=== PATIENT | male | born 1960 | race African-American/Black ===

== ENCOUNTER 2019-09-25 01:03 | Emergency (ER) | payer OTHER ==
[~2019-09-25] VITALS: Ht 175.3 cm; Wt 72.6 kg
[~2019-09-25 01:03] MED LIST: ACETAMINOPHEN500 M5 ORAL; ASPIR-LOW81 MG ORAL; BUPROPION HCL100 MG ORAL; DOXYCYCLINE HY100 M2 PO; LEVOFLOXACIN500 MG ORAL; LITHIUM CARBON300 M1 PO; MONTELUKAST SOD10 MG ORAL; SEROQUEL XR200 MG ORAL; SEROQUEL50 MG ORAL
--- NOTE | 2019-09-25 01:07 | NUR ---
ED Nurse Note: pt presents to ED via EMS arrival RA 60 from [facility] with a behavioral complaint. per EMS, pt states he hasn't taken any of his psych meds today and for the past hour he has been yelling and reporting visual and auditory hallucinations. pt denies SI/ HI, pt is able to answer questions and follow commands but repeatedly has outbursts and yells nonsensically. pt also has a cough x 1 month and admits to marijuana use today
[2019-09-25] MEDS ORDERED: Albuterol ud Inhalation HHN ONE (01:15)
[2019-09-25] MEDS ORDERED: Solu-MEDROL 125mg Inj IVP ONE (01:15)
[2019-09-25] MEDS ORDERED: Haloperidol 5mg/ml Inj IM ONE (01:15)
[2019-09-25] MEDS ORDERED: LORazepam Inj 2mg/ml 1ml IV ONE (01:15)
--- NOTE | 2019-09-25 01:15 | Emergency Room Report ---
History of Present Illness General Chief Complaint: Behavioral Complaint Source: Patient, Medical Record, EMS Present Illness HPI This is a 59-year-old male with a psychiatric history and also history of COPD. He continues to smoke. His main complaint here is agitation. He did not take his psychiatric medications today in the psychiatric facility sent him here because he is agitated. He is been agitated and screaming. No nausea no vomiting. Patient denies any suicidal thoughts homicidal thought. Said he did not take his lithium and Seroquel today. Allergies: Coded Allergies: No Known Allergies (Unverified , 08/16/19) Patient History Past Medical History: see triage record, old chart reviewed, COPD, psych hx Past Surgical History: other Pertinent Family History: none Social History: Reports: smoking Immunizations: other Reviewed Nursing Documentation: PMH: Agreed; PSxH: Agreed Nursing Documentation-PMH Hx Cardiac Problems: No Hx Asthma: Yes Hx COPD: Yes Hx Cancer: No Hx Gastrointestinal Problems: No Review of Systems Eye: Denies: eye pain, blurred vision ENT: Denies: ear pain, nose congestion, throat swelling Respiratory: Denies: cough, shortness of breath Cardiovascular: Denies: chest pain, palpitations Gastrointestinal: Denies: abdominal pain, diarrhea, nausea, vomiting Musculoskeletal: Denies: back pain, joint pain Skin: Denies: rash Neurological: Denies: headache, numbness Endocrine: Denies: increased thirst, increased urine Hematologic/Lymphatic: Denies: easy bruising All Other Systems: negative except mentioned in HPI Physical Exam Vital Signs Date Time Temp Pulse Resp B/P (MAP) Pulse Ox O2 Delivery O2 Flow Rate FiO2 09/25/19 00:58 99.9 84 20 114/70 (85) 97 Room Air Vitals normal Sp02 EP Interpretation: reviewed, normal General Appearance: well appearing, no apparent distress, alert, other - Patient with outbursts of yelling intermittently. Head: normocephalic, atraumatic Eyes: bilateral eye PERRL, bilateral eye EOMI ENT: hearing grossly normal, normal pharynx Neck: full range of motion, supple, no meningismus Respiratory: chest non-tender, wheezing Cardiovascular #1: regular rate, rhythm, no murmur Gastrointestinal: normal bowel sounds, non tender, no mass, no organomegaly, no bruit, non-distended Musculoskeletal: back normal, normal range of motion, gait/station normal Psychiatric: mood/affect normal Medical Decision Making Diagnostic Impression: Primary Impression: COPD with exacerbation Additional Impressions: Psychosis Qualified Codes: F23 - Brief psychotic disorder Methamphetamine abuse ER Course Patient presents with acute psychosis probably secondary to methamphetamine use. He is calm after getting Haldol and Ativan. I gave him breathing treatment here also. Wheezing resolved. Will discharge back to psychiatric boarding care in the morning. No evidence of ACS, PE, dissection to name a few. No criteria for 5150. This patient is a chronic risk of self injury due to poor impulse control, limited coping skills, and judgment intermittently impaired by intoxication. I believe that the available clinical evidence to suggest that these characteristics derived primarily from personality disorder and are likely very stable over time. Hospitalization would likely attenuate risk of self-harm only during correction period, without lasting risk reduction. Serious self-harm , while possible, would likely be inadvertent, and because of impulsivity, and foreseeable. For these reasons, I do not believe hospitalization would provide meaningful reduction in risk of self-harm. Chest X-Ray Diagnostic Results Chest X-Ray Diagnostic Results : Chest X-Ray Ordered: Yes # of Views/Limited/Complete: 1 View Indication: Shortness of Breath EP Interpretation: Yes Interpretation: no consolidation, no effusion, no pneumothorax, no acute cardiopulmonary disease Impression: No acute disease Electronically Signed by: Anjel Mobley MD Last Vital Signs Date Time Temp Pulse Resp B/P (MAP) Pulse Ox O2 Delivery O2 Flow Rate FiO2 09/25/19 00:58 99.9 84 20 114/70 (85) 97 Room Air Status: improved Disposition: HOME, SELF-CARE Condition: Stable Scripts Prednisone* (PREDNISONE*) 20 Mg Tablet 40 MG ORAL DAILY, #10 TAB Prov: Anjel Mobley MD 09/25/19 Albuterol Sulfate* (ALBUTEROL SULFATE MDI*) 8.5 Gm Hfa.aer.ad 2 PUFF INH Q4H PRN for cough/wheezing, #1 EA 0 Refills Prov: Anjel Mobley MD 09/25/19 Patient Instructions: Self-Destructive Behavior Additional Instructions: Using drugs. Follow-up with your doctor in 7 days. Take your psychiatric medication. Return if worse. Anjel Mobley MD Sep 25, 2019 01:15
[2019-09-25 01:25] LABS: BASOPHILS % (AUTO) 0.7 % (0.0-2.0); EOSINOPHILS % (AUTO) 0.6 % (0.0-3.0); HEMATOCRIT 35.4 % (42.0-52.0); HEMOGLOBIN 11.9 G/DL (14.2-18.0); LYMPHOCYTES % (AUTO) 13.3 % (20.0-45.0); MEAN CORPUSCULAR VOLUME 95 FL (80-99); MONOCYTES % (AUTO) 6.6 % (1.0-10.0); NEUTROPHILS % (AUTO) 78.9 % (45.0-75.0); PLATELET COUNT 320 K/UL (150-450); RED BLOOD COUNT 3.71 M/UL (4.70-6.10); RED CELL DISTRIBUTION WIDTH 12.6 % (11.6-14.8); WHITE BLOOD COUNT 15.5 K/UL (4.8-10.8)
[2019-09-25 01:26] VITALS: BP 103/70
[2019-09-25 01:39] LABS: ALANINE AMINOTRANSFERASE 26 U/L (12-78); ALBUMIN 3.1 G/DL (3.4-5.0); ALBUMIN/GLOBULIN RATIO 0.6 (1.0-2.7); ALKALINE PHOSPHATASE 76 U/L (46-116); ANION GAP 8 mmol/L (5-15); ASPARTATE AMINO TRANSFERASE 42 U/L (15-37); BILIRUBIN,TOTAL 0.6 MG/DL (0.2-1.0); BLOOD UREA NITROGEN 19 mg/dL (7-18); CARBON DIOXIDE 28 MMOL/L (21-32); CHLORIDE 104 MMOL/L (98-107); POTASSIUM 4.3 MMOL/L (3.5-5.1); SODIUM 140 MMOL/L (136-145)
[2019-09-25 01:51] LABS: CALCIUM 9.2 MG/DL (8.5-10.1); CREATININE 1.4 MG/DL (0.55-1.30)
[2019-09-25 02:21] LABS: APPEARANCE,URINE CLEAR; BILIRUBIN, URINE 1+ (NEGATIVE); COLOR,URINE BROWN; GLUCOSE, URINE (UA) NEGATIVE (NEGATIVE); KETONES,URINE 1+ (NEGATIVE); LEUKOCYTE ESTERASE ,URINE 1+ (NEGATIVE); NITRITE,URINE NEGATIVE (NEGATIVE); PH,URINE 5 (4.5-8.0); PROTEIN,URINE 2+ (NEGATIVE); UROBILINOGEN,URINE 4 MG/DL (0.0-1.0)
--- NOTE | 2019-09-25 03:20 | Diagnostic Imaging Report ---
EXAM: XR Chest, 1 View CLINICAL HISTORY: SOB TECHNIQUE: Frontal view of the chest. COMPARISON: 08/16/19 FINDINGS: Lungs: Unremarkable. No consolidation. Pleural space: Unremarkable. No pneumothorax. Heart: Unremarkable. No cardiomegaly. Mediastinum: Unremarkable. Bones/joints: Unremarkable. IMPRESSION: Normal chest x-ray.
[2019-09-25] MEDS ORDERED: PREDNISONE20 MG ORAL (03:53)
[2019-09-25] MEDS ORDERED: ALBUTEROL SULF8.5 GM INH (03:53)
[2019-09-25 04:07] VITALS: BP 101/70
--- NOTE | 2019-09-25 05:17 | NUR ---
ED Nurse Note: pt appears to be asleep in bed, no acute distress is noted at this time. VSS. pt is on application engineer.
[2019-09-25 06:30] VITALS: BP 103/80
[2019-09-25 07:35] VITALS: BP 115/76
--- NOTE | 2019-09-25 08:00 | NUR ---
ED Nurse Note: PT STILL GROGGY AND UNABLE TO SPEAK CLEARLY. WILL CONTINUE TO ASSESS. SIDE RAILS UP X2 WITH BE LOCKED IN LOWEST POSITION.
[2019-09-25 09:32] VITALS: BP 122/75
--- NOTE | 2019-09-25 09:32 | NUR ---
ED Nurse Note: SANDWICH AND JUICE PROVIDED. PT STILL SLEEPY AND UNABLE TO STAND UP.
[2019-09-25 11:15] VITALS: BP 134/70
== END 2019-09-25 11:15 | disposition home or self-care (01) ==
LOC: EDBD 01:03 → EMR 01:14
DX: F23 Brief psychotic disorder (principal); J44.1 Chronic obstructive pulmonary disease with (acute) exacerbation; F15.10 Other stimulant abuse, uncomplicated; F17.200 Nicotine dependence, unspecified, uncomplicated
CPT/HCPCS: 36415; 71045; 80053; 80307; 81003; 85025; 96361; 96372; 96374; 96375; G0480; G0481; J1630; J2930; J7030; Z7502; 99284